=== PATIENT | female | born 1975 | race Hispanic/Latino ===

== ENCOUNTER 2017-07-15 18:56 | Emergency (ER) | payer SELFPAY ==
[2017-07-15 19:57] LABS: Bilirubin Negative (Negative); Blood, Urine Small (Negative); Glucose, Urine (Dipstick) Negative (Negative); Ketone, Urine Negative (Negative); Nitrite Negative (Negative); Protein, Urine (Dipstick) Negative (Neg-Trace); Urobilinogen 0.2 mg/dL (0.2-1.0)
[2017-07-15 19:59] LABS: Bacteria/HPF 1+ HPF (None Seen); Hyaline Casts/LPF 0-3 HYALINE CAST LPF (0-3 Hyaline); Squamous Epithelial 0-3 HPF (0-3); WBC/HPF 0-3 HPF (0-3)
[2017-07-15] MEDS ORDERED: Metoclopramide HCl 10 MG/2 ML VIAL ONE (20:02)
[2017-07-15] MEDS ORDERED: diphenhydrAMINE 50 MG/ML VIAL ONE (20:02)
[2017-07-15] MEDS ORDERED: Ketorolac Tromethamine 30 MG/ML VIAL ONE (20:04)
== END 2017-07-15 21:12 | disposition home or self-care (01) ==
LOC: ERS 18:56
DX: G43.909 Migraine, unspecified, not intractable, without status migrainosus (principal)
CPT/HCPCS: 81003; 81015; 81025; 87086; 96365; 96375; J1200; J1885; J2765